=== PATIENT | female | born 1940 | race Caucasian/White ===

== ENCOUNTER 2024-06-08 13:19 | Emergency (ER) | payer MEDICARE, OTHER, SELFPAY ==
[2024-06-08 13:20] VITALS: BP 127/109; PULSE 78; RESP 16; TEMP 36.3; O2SAT 98; BMI 24.5
[2024-06-08 14:43] LABS: Bacteria 0 SEEN /hpf (None Seen); Mucous, Urine 0 SEEN /hpf (<or=2+); Red Blood Cells-Urine 0 SEEN /hpf (0-5)
[2024-06-08 14:45] LABS: Absolute Lymphocyte Count 1.21 X10^3/uL (0.83-4.51); Absolute Neutrophil Count 4.1 X10^3/uL (2.0-7.7); Basophil# 0.06 X10^3/uL; Eosinophil# 0.17 X10^3/uL; Eosinophils% 2.8 % (0-5); Hematocrit 34.7 % (37-47); Hemoglobin 11.8 g/dL (12.0-15.0); Lymphocyte # 1.21 X10^3/ul (0.83-4.51); Lymphocyte % 20.2 % (19-41); Mean Platelet Vol. 11.1 fl (6.2-12.0); Monocyte% 6.7 % (0-10); NRBC Flagged by Analyzer 0 % (0-5); Neutrophil # 4.14 X10^3/uL (2.7-7.7); Neutrophil % 69.1 % (47-70); Platelet Count 185 K/mm3 (150-450); RBC Distribution Width CV 12.2 % (11.6-14.6); RBC Distribution Width SD 41.8 fl (35.1-43.9); Red Blood Count 3.69 M/mm3 (4.2-5.4)
[2024-06-08 14:47] LABS: Color, Urine Yellow (Yellow); Glucose, Dipstick Normal (Normal); Ketone-Dipstick Negative (Negative); Leukocyte Esterase-Dipstick 100 /ul (Negative); Nitrite-Dipstick Negative (Negative); Occult Blood-Urine Negative /ul (Negative); Protein-Dipstick Negative (Negative); Urine Bilirubin Dipstick Negative (Negative); Urine Clarity Sl. Cloudy (Clear); Urine Urobilinogen Normal (Normal); Urine pH 6.5 (5.0 - 8.0)
--- NOTE | 2024-06-08 14:47 | RAD_ITS ---
EXAM: XR ABDOMEN, 1 VIEW CLINICAL INDICATION: constipation TECHNIQUE: Frontal supine view of the abdomen/pelvis. COMPARISON: No relevant prior studies available. FINDINGS: GASTROINTESTINAL TRACT: Moderate to large amount of stool and gas throughout the bowel without overt evidence of bowel obstruction. ORGANS: Normal as visualized. No organomegaly. No abnormal calcifications. BONES/JOINTS: [place] left scoliotic curvature and degenerative change. Degenerative changes at the SI joints and bilateral hips. SOFT TISSUES: No acute pathology. VASCULATURE: Vascular calcifications. RAD/Abdomen Single View IMPRESSION: Moderate to large amount of stool and gas throughout the bowel without overt evidence of bowel obstruction. Electronically Signed: Angel Sim DO at 15:26 EDT ,
--- NOTE | 2024-06-08 14:48 | EX.ED.DYSGE1 ---
HPI History of Present Illness Chief Complaint: Abd Pain Informant: patient and family (Son) Narrative Narrative: 83-year-old female history of Alzheimer's presented to the emergency room with abdominal pain. Son tells me that she is in hospice care for possible pancreatic cancer, Alzheimer's, and skin cancer. She states that she has chronic issues with constipation. Today she was having upper abdominal pain across all quadrants. He had hospice nurse come out they took vital signs and gave some extra senna. Also gave an Ultram. Patient had a bowl of bran flakes this morning. No vomiting or fevers. Patient states she is no longer having any abdominal pain. [facility] Medical History Skin cancer Diastolic heart failure Hypertension Constipation Home Medications ?Medication ?Instructions ?Recorded ?Last Taken ?Type amlodipine 10 mg tablet 10 mg PO DAILY blood pressure 06/08/24 Unknown History magnesium citrate 300 ml PO X1 PRN constipation #3 06/08/24 Unknown Rx BOTTLES memantine 10 mg tablet 10 mg PO BID 06/08/24 Unknown History mirabegron 25 mg tablet,extended 25 mg PO DAILY dysuria 06/08/24 Unknown History release 24 hr (Myrbetriq) omeprazole 20 mg capsule,delayed 20 mg PO DAILY 06/08/24 Unknown History release valsartan 80 mg tablet 80 mg PO DAILY 06/08/24 Unknown History Allergy/AdvReac Type Severity Reaction Status Date / Time No Known Allergies Allergy Verified 06/08/24 13:23 Social History Smoking Status: Never smoker ROS ROS ED Constitutional Constitutional ED: Denies chills, fever(s) or weight loss Eyes Eyes: Denies change in vision or diplopia ENT ENT ED: Denies ear pain, rhinorrhea or sore throat Cardiovascular Cardiovascular: Denies chest pain, orthopnea, palpitations or racing heartbeat Respiratory/Chest Respiratory/Chest: Denies cough, dyspnea or orthopnea Gastrointestinal Gastrointestinal: Reports abdominal pain and constipation; Denies diarrhea, nausea or vomiting Genitourinary Genitourinary ED: Denies dysuria, hematuria or urinary frequency Musculoskeletal Musculoskeletal: Denies arthralgias or myalgias Integumentary Denies abscess or rash Neurologic Neurologic: Denies headache(s) or weakness Psychiatric Psychiatric: Denies anxiety, depression, suicidal ideation or suicidal thoughts Endocrine Endocrinology: Denies polydipsia, polyphagia or polyuria Allergic/Immunologic Allergic/Immunologic ED: Denies mouth swelling, tongue swelling or urticaria EXAM Physical Exam Narrative Exam Narrative: Pleasant 83-year-old female sitting comfortably in bed Const Vital Signs: 06/08/24 13:20 06/08/24 15:20 06/08/24 15:57 Temperature 97.4 F L 97.2 F L Temperature Source Temporal Pulse Rate 78 82 76 Respiratory Rate 16 16 16 Blood Pressure 127/109 H 132/76 H 133/76 H Blood Pressure Mean 115 94 95 Pulse Ox 98 94 100 Oxygen Delivery Method Room Air Room Air Positive well nourished and well developed General Appearance ED: well developed HEENT Reports normocephalic, head/scalp atraumatic and moist mucous membranes Eyes PERRL and EOMs intact bilaterally Neck no lymphadenopathy, supple and no JVD Resp normal respiratory effort and clear to auscultation bilaterally Cardio regular rate, regular rhythm and no murmurs GI normal to inspection, nondistended, normoactive bowel sounds and non-tender Auscultation: normoactive bowel sounds Palpation: soft; Negative for tender, guarding or rebound tenderness present Back/Spine no CVA tenderness and normal ROM Extremity normal to inspection General Extremety ED: Negative for edema General Extremity: Negative for edema Neuro CN's II-XII intact bilaterally Neuro Narrative: Patient is alert orientated to self. Sensorium / Orientation: alert Motor Exam: strength 5/5 throughout Psych Mood & Affect: Negative for depressed or tearful Skin no rashes or lesions noted and no wounds MDM MDM MDM Narrative Medical decision making narrative: Differential diagnosis includes but not limited to constipation pancreatitis biliary colic bowel obstruction fecal impaction volvulus gastric outlet obstruction Patient is asymptomatic my examination. She has normal bowel sounds. White count is 6 hemoglobin 11.8. BMP is within normal limits urinalysis does not show any overt infection. My independent interpretation of the plain film of the abdomen is increased stool and gas but no obvious obstruction or bowel movements. EKG, I spoke with the patient and her son. They have had mixed results in the past with enemas to do this today. They prefer to take some magnesium citrate today and possible tomorrow. I think this is a reasonable plan of writing prescription for it. Would recommend following up as needed return History & Record Review Discussion w/independent historian: Patient and Family Lab Data Attestation: I reviewed the patient's lab results. Labs: Laboratory Results - last 24 hr 06/08/24 14:36 WBC 6.0 RBC 3.69 L Hgb 11.8 L Hct 34.7 L MCV 94.0 MCH 32.0 MCHC 34.0 RDW Std Deviation 41.8 RDW Coeff of Flip 12.2 Plt Count 185 MPV 11.1 Immature Gran % (Auto) 0.200 Neut % (Auto) 69.1 Lymph % (Auto) 20.2 [place] % (Auto) 6.7 Eos % (Auto) 2.8 Baso % (Auto) 1.0 Absolute Neuts (auto) 4.1 Absolute Lymphs (auto) 1.21 Nucleated RBC % 0 Sodium 139 Potassium 3.5 Chloride 107 Carbon Dioxide 27.0 Anion Gap 5 BUN 12 Creatinine 0.85 Estim Creat Clear Calc 42.29 Est GFR (MDRD) Af Amer 82 Est GFR (MDRD) Non-Af 68 BUN/Creatinine Ratio 14.2 Glucose 101 Calcium 8.9 Urine Color Yellow Urine Clarity Sl. Cloudy Urine pH 6.5 Ur Specific [place] 1.010 Urine Protein Negative Urine Glucose (UA) Normal Urine Ketones Negative Urine Occult Blood Negative Urine Nitrite Negative Urine Bilirubin Negative Urine Urobilinogen Normal Ur Leukocyte Esterase 100 H Urine RBC 0 SEEN Urine WBC 0-5 SEEN Ur Squamous Epith Cells 0-5 SEEN Urine Bacteria 0 SEEN Urine Mucus 0 SEEN Radiography Diagnostic Testing: Clinical Impression(s) from Imaging Studies KUB X-Ray 06/08/24 14:47 IMPRESSION: Moderate to large amount of stool and gas throughout the bowel without overt evidence of bowel obstruction. Electronically Signed: Angel Sim DO at 15:26 EDT , Discharge Plan Triage Chief Complaint: Abd Pain ED Provider: Cristi Raza Dx/Rx/DC Orders Clinical Impression: Abdominal pain, Constipation Instructions: ED Constipation (Adult) Prescriptions: New magnesium citrate Solution 300 ml PO X1 PRN (Reason: constipation) Qty: 3 0RF No Action valsartan 80 mg tablet 80 mg PO DAILY amlodipine 10 mg tablet 10 mg PO DAILY omeprazole 20 mg capsule,delayed release(DR/EC) 20 mg PO DAILY memantine 10 mg tablet 10 mg PO BID mirabegron [Myrbetriq] 25 mg tablet extended release 24 hr 25 mg PO DAILY Primary Care Provider: Halle Johnson Referrals: Halle Johnson MD [Primary Care Provider] - As Needed Print Language: Persian Disposition Disposition: Home, Self Care Discharge Date/Time: 06/08/24 15:58
[2024-06-08 14:57] LABS: Squamous Epithelial Cells - UA 0-5 SEEN /hpf (5-10); White Blood Cells 0-5 SEEN /hpf (0-5)
[2024-06-08 15:02] LABS: Anion Gap 5 (5-15); BUN 12 mg/dL (7-18); BUN/Creat Ratio 14.2 RATIO (10-20); Calcium,Total 8.9 mg/dL (8.5-10.1); Chloride 107 mmol/L (98-107); Creatinine, Serum 0.85 mg/dL (0.55-1.02); EST Glomerular Filtration Rate 68 mL/min (>60); Est Glom Filt Rate - Afr Amer 82 mL/min (>60); Estimated Creatinine Clearance 42.29 ml/min; Glucose 101 mg/dL (74-106); Potassium 3.5 mmol/L (3.5-5.1); Sodium Level 139 mmol/L (136-145)
[2024-06-08 15:20] VITALS: BP 132/76; PULSE 82; RESP 16; O2SAT 94
[2024-06-08 15:57] VITALS: BP 133/76; PULSE 76; RESP 16; TEMP 36.2; O2SAT 100
== END 2024-06-08 15:58 | disposition home or self-care (01) ==
PROVIDERS: Emergency Provider Emergency Medicine; PCP Family Medicine; Visit Provider Emergency Medicine
DX: K59.00 Constipation, unspecified (principal); I11.0 Hypertensive heart disease with heart failure; I50.32 Chronic diastolic (congestive) heart failure; G30.9 Alzheimer's disease, unspecified; F02.80 Dementia in other diseases classified elsewhere, unspecified severity, without behavioral disturbance, psychotic disturbance, mood disturbance, and anxiety; R10.9 Unspecified abdominal pain; Z51.5 Encounter for palliative care; Z79.899 Other long term (current) drug therapy
CPT/HCPCS: 74018; 80048; 81001; 85025; 99283; A4216

== ENCOUNTER 2024-06-27 15:57 | Emergency (ER) | payer MEDICARE, SELFPAY ==
[2024-06-27 15:59] VITALS: BP 129/79; PULSE 77; RESP 17; TEMP 36.1; O2SAT 100; BMI 23.3
--- NOTE | 2024-06-27 16:23 | EDS_ITS ---
HPI HPI - GI History of Present Illness Chief Complaint: Weakness Informant: patient and family Narrative Narrative: Patient has dementia, she is alone at home for portions of the day when family is working, please saw her stumble today as if somebody shoved her, and were concerned as far as camera footage was concerned. For the last month she has had constipation and abdominal pain off-and-on. They have been treating this with laxatives and stool softeners. Today she was having a lot of pain, and they were concerned that there was a colon perforation. CT scan for the same thing couple weeks ago here showed swollen colon. Patient had her last bowel movement just before coming here. She states she has no pain right now. She has had no vomiting. She had no trouble urinating earlier and she states there was no blood in his stool from a couple hours ago. She was on hospice, the son states they took her off of it here recently. They were having to come to the house often to give her enemas and suppositories for constipation issues. She walks without assistance at home, son states she is post use a walker but she refuses. [facility] Medical History (Updated 06/27/24 @ 16:[address] Ishaan Gomes MD) Dementia Skin cancer Diastolic heart failure Hypertension Constipation Home Medications ?Medication ?Instructions ?Recorded ?Last Taken ?Type amlodipine 10 mg tablet 10 mg PO DAILY blood pressure 06/08/24 Unknown History magnesium citrate 300 ml PO X1 PRN constipation #3 06/08/24 Unknown Rx BOTTLES memantine 10 mg tablet 10 mg PO BID 06/08/24 Unknown History mirabegron 25 mg tablet,extended 25 mg PO DAILY dysuria 06/08/24 Unknown History release 24 hr (Myrbetriq) omeprazole 20 mg capsule,delayed 20 mg PO DAILY 06/08/24 Unknown History release valsartan 80 mg tablet 80 mg PO DAILY 06/08/24 Unknown History Allergy/AdvReac Type Severity Reaction Status Date / Time No Known Allergies Allergy Verified 06/27/24 15:59 Social History Smoking Status: Never smoker ROS ROS ED Constitutional Constitutional ED: Denies chills or fever(s) Eyes Eyes: Denies change in vision or diplopia ENT ENT ED: Denies rhinorrhea or sore throat Cardiovascular Cardiovascular: Denies chest pain or palpitations Respiratory/Chest Respiratory/Chest: Denies cough or dyspnea Gastrointestinal Gastrointestinal: Reports as per HPI, abdominal pain and constipation; Denies diarrhea, nausea or vomiting Genitourinary Genitourinary ED: Denies dysuria or hematuria Musculoskeletal Musculoskeletal: Denies back pain or neck pain Integumentary Denies abscess or rash Neurologic Neurologic: Reports other Details: Confusion. At baseline. Stumbled earlier see HPI. ; Denies headache(s), paresthesias or weakness Psychiatric Psychiatric: Denies anxiety or suicidal thoughts EXAM Physical Exam Const Vital Signs: 06/27/24 15:59 06/27/24 16:46 Temperature 97 F L Temperature Source Temporal Pulse Rate 77 Respiratory Rate 17 Respiratory Effort Normal Respiratory Pattern Normal Blood Pressure 129/79 H Blood Pressure Mean 95 Pulse Ox 100 Oxygen Delivery Method Room Air Positive well nourished and well developed General Appearance ED: well developed and NAD HEENT Reports moist mucous membranes normocephalic and atraumatic Eyes PERRL and EOMs intact bilaterally Neck full ROM and supple Resp normal respiratory effort and clear to auscultation bilaterally Cardio regular rate, regular rhythm and no murmurs GI non-tender and non-distended GI Narrative: Benign exam Auscultation: normoactive bowel sounds Palpation: soft Back/Spine no CVA tenderness General Back: other FROM Extremity normal to inspection General Extremety ED: Negative for edema, pulses abnormal or tenderness General Extremity: Negative for edema or pulses abnormal Neuro oriented x3, CN's II-XII intact bilaterally and no sensory deficits noted Neuro Narrative: Normal [id number] and [id number] bilaterally. Normal gait, patient has no ataxia and can walk down the [place] and back without any difficulty and states she did not feel dizzy at all. Sensorium / Orientation: awake and alert Motor Exam: strength 5/5 throughout Psych mental status grossly normal and thought process normal Skin no rashes or lesions noted and no wounds MDM MDM MDM Narrative Medical decision making narrative: Ran some basic labs I reviewed them. I do not think she needs repeat imaging of her abdomen/pelvis right now since her abdomen is very benign and I reassured family, she does not have a bowel perforation if her pain is gone and her abdomen is not tender. He is reassured. I reviewed her CT from before, it looks like she had temporary colon distention as a result of being constipated. I relayed this to family, stating that there is nothing there that appear to be a chronic condition anatomically with her colon. History & Record Review Additional record(s) reviewed:: Prior outpatient record and Prior ED visit Lab Data Attestation: I reviewed the patient's lab results. Labs: Laboratory Results - last 24 hr 06/27/24 16:40 WBC 6.5 RBC 3.82 L Hgb 12.4 Hct 36.8 L MCV 96.3 MCH 32.5 H MCHC 33.7 RDW Std Deviation 42.0 RDW Coeff of Flip 11.9 Plt Count 190 MPV 11.0 Immature Gran % (Auto) 0.300 Neut % (Auto) 67.1 Lymph % (Auto) 20.0 [place] % (Auto) 8.8 Eos % (Auto) 3.2 Baso % (Auto) 0.6 Absolute Neuts (auto) 4.4 Absolute Lymphs (auto) 1.30 Nucleated RBC % 0 Sodium 135 L Potassium 3.8 Chloride 103 Carbon Dioxide 25.0 Anion Gap 7 BUN 14 Creatinine 0.95 Estim Creat Clear Calc 38.07 Est GFR (MDRD) Af Amer 72 Est GFR (MDRD) Non-Af 59 L BUN/Creatinine Ratio 14.7 Glucose 104 Calcium 8.5 Total Bilirubin 0.30 AST 16 ALT 15 Alkaline Phosphatase 79 Total Protein 6.7 Albumin 3.2 Globulin 3.5 Albumin/Globulin Ratio 0.9 Discharge Plan Triage Chief Complaint: Weakness ED Provider: Ishaan Gomes Dx/Rx/DC Orders Clinical Impression: Constipation, Intermittent abdominal pain Instructions: ED Constipation (Adult) Prescriptions: No Action valsartan 80 mg tablet 80 mg PO DAILY amlodipine 10 mg tablet 10 mg PO DAILY omeprazole 20 mg capsule,delayed release(DR/EC) 20 mg PO DAILY memantine 10 mg tablet 10 mg PO BID mirabegron [Myrbetriq] 25 mg tablet extended release 24 hr 25 mg PO DAILY magnesium citrate Solution 300 ml PO X1 PRN (Reason: constipation) Qty: 3 0RF Primary Care Provider: Tigist Madrid NP Referrals: Tigist Madrid NP, RN PSYCH-[facility] [Primary Care Provider] - Print Language: [place] Disposition Disposition: Home, Self Care
[2024-06-27 16:55] LABS: Absolute Neutrophil Count 4.4 X10^3/uL (2.0-7.7); Basophil# 0.04 X10^3/uL; Basophil% 0.6 % (0-1); Eosinophil# 0.21 X10^3/uL; Eosinophils% 3.2 % (0-5); Hematocrit 36.8 % (37-47); Hemoglobin 12.4 g/dL (12.0-15.0); Mean Corp Hgb Conc 33.7 g/dL (32-36); Mean Corpuscular Hgb 32.5 pg (27.0-32.0); Mean Corpuscular Volume 96.3 fL (81-99); Monocyte# 0.57 X10^3/uL; Monocyte% 8.8 % (0-10); NRBC Flagged by Analyzer 0 % (0-5); Neutrophil # 4.37 X10^3/uL (2.7-7.7); Neutrophil % 67.1 % (47-70); Platelet Count 190 K/mm3 (150-450); RBC Distribution Width CV 11.9 % (11.6-14.6); Red Blood Count 3.82 M/mm3 (4.2-5.4); White Blood Count 6.5 K/mm3 (4.4-11.0)
[2024-06-27 17:00] VITALS: BP 134/74; PULSE 82; RESP 18; TEMP 36.6; O2SAT 99
[2024-06-27 17:20] LABS: ALB/GLOB Ratio 0.9 RATIO (0.9-2.4); AST(SGOT) 16 U/L (15-37); Alanine Aminotransfer ALT/SGPT 15 U/L (13-56); Albumin, Serum 3.2 g/dL (3.2-5.0); Alkaline Phosphatase 79 U/L (45-117); Anion Gap 7 (5-15); BUN 14 mg/dL (7-18); BUN/Creat Ratio 14.7 RATIO (10-20); Calcium,Total 8.5 mg/dL (8.5-10.1); Chloride 103 mmol/L (98-107); Creatinine, Serum 0.95 mg/dL (0.55-1.02); EST Glomerular Filtration Rate 59 mL/min (>60); Est Glom Filt Rate - Afr Amer 72 mL/min (>60); Estimated Creatinine Clearance 38.07 ml/min; Globulin 3.5 g/dL (2.2-4.2); Glucose 104 mg/dL (74-106); Potassium 3.8 mmol/L (3.5-5.1); Protein, Total 6.7 g/dL (6.4-8.2); Sodium Level 135 mmol/L (136-145)
== END 2024-06-27 17:09 | disposition home or self-care (01) ==
PROVIDERS: Emergency Provider Emergency Medicine; PCP Nurse Practitioner Family; Visit Provider Emergency Medicine
DX: K59.00 Constipation, unspecified (principal); I11.0 Hypertensive heart disease with heart failure; I50.32 Chronic diastolic (congestive) heart failure; F03.90 Unspecified dementia, unspecified severity, without behavioral disturbance, psychotic disturbance, mood disturbance, and anxiety; R10.9 Unspecified abdominal pain; Z79.899 Other long term (current) drug therapy
CPT/HCPCS: 80053; 85025; 99282

== ENCOUNTER 2024-08-19 18:01 | Emergency (ER) | payer MEDICARE, SELFPAY ==
[2024-08-19 18:04] VITALS: BP 139/86; PULSE 73; RESP 16; TEMP 37; O2SAT 98; BMI 22.9
[2024-08-19 18:50] LABS: Absolute Lymphocyte Count 1.17 X10^3/uL (0.83-4.51); Basophil# 0.06 X10^3/uL; Basophil% 1.2 % (0-1); Eosinophil# 0.27 X10^3/uL; Eosinophils% 5.4 % (0-5); Hematocrit 37.4 % (37-47); Hemoglobin 12.6 g/dL (12.0-15.0); Lymphocyte # 1.17 X10^3/ul (0.83-4.51); Lymphocyte % 23.4 % (19-41); Mean Corp Hgb Conc 33.7 g/dL (32-36); Mean Corpuscular Hgb 32.7 pg (27.0-32.0); Mean Corpuscular Volume 97.1 fL (81-99); Monocyte# 0.54 X10^3/uL; Monocyte% 10.8 % (0-10); NRBC Flagged by Analyzer 0 % (0-5); Neutrophil # 2.95 X10^3/uL (2.7-7.7); Neutrophil % 59.2 % (47-70); Platelet Count 204 K/mm3 (150-450); RBC Distribution Width CV 12.4 % (11.6-14.6); RBC Distribution Width SD 44.3 fl (35.1-43.9); Red Blood Count 3.85 M/mm3 (4.2-5.4)
[2024-08-19 19:01] LABS: Alcohol, Blood (Medical)-Serum < 3.0 mg/dL
[2024-08-19 19:05] LABS: ALB/GLOB Ratio 0.9 RATIO (0.9-2.4); AST(SGOT) 19 U/L (15-37); Alanine Aminotransfer ALT/SGPT 28 U/L (13-56); Albumin, Serum 3.4 g/dL (3.2-5.0); Alkaline Phosphatase 95 U/L (45-117); Anion Gap 6 (5-15); BUN 9 mg/dL (7-18); BUN/Creat Ratio 8.3 RATIO (10-20); Calcium,Total 8.7 mg/dL (8.5-10.1); Chloride 107 mmol/L (98-107); Creatinine, Serum 1.09 mg/dL (0.55-1.02); EST Glomerular Filtration Rate 51 mL/min (>60); Est Glom Filt Rate - Afr Amer 61 mL/min (>60); Estimated Creatinine Clearance 33.18 ml/min; Globulin 3.6 g/dL (2.2-4.2); Glucose 126 mg/dL (74-106); Potassium 3.6 mmol/L (3.5-5.1); Sodium Level 139 mmol/L (136-145)
[2024-08-19 19:10] VITALS: BP 122/74; PULSE 87; RESP 18; O2SAT 99
[2024-08-19 20:36] LABS: Mucous, Urine 0 SEEN /hpf (<or=2+); Red Blood Cells-Urine 0 SEEN /hpf (0-5)
[2024-08-19 20:38] LABS: Color, Urine Yellow (Yellow); Glucose, Dipstick Normal (Normal); Ketone-Dipstick Negative (Negative); Leukocyte Esterase-Dipstick 25 /ul (Negative); Nitrite-Dipstick Negative (Negative); Occult Blood-Urine 10 /ul (Negative); Protein-Dipstick Negative (Negative); Specific Gravity, Urine 1.015 (1.002-1.030); Urine Bilirubin Dipstick Negative (Negative); Urine Clarity Sl. Cloudy (Clear); Urine Urobilinogen Normal (Normal)
[2024-08-19 20:44] LABS: Squamous Epithelial Cells - UA 0-5 SEEN /hpf (5-10)
[2024-08-19 20:45] LABS: Bacteria RARE /hpf (None Seen); White Blood Cells 0-5 SEEN /hpf (0-5)
[2024-08-19 20:58] LABS: Amphetamine Urine VISTA NEGATIVE (<1000 ng/mL); Barbiturate Urine VISTA NEGATIVE (< 200 ng/mL); Benzodiazepine Urine VISTA NEGATIVE (< 200 ng/mL); Cocaine Urine VISTA NEGATIVE (< 300 ng/mL); Ecstacy Urine VISTA NEGATIVE (< 500 ng/mL); Methadone Urine VISTA NEGATIVE (< 300 ng/mL); PCP Urine VISTA NEGATIVE (< 25 ng/mL); THC Urine VISTA NEGATIVE (< 50 ng/mL); Vista UDS pH Range 5
[2024-08-20 04:07] VITALS: BP 134/65; PULSE 86; RESP 13; RESP 136; TEMP 36.2; O2SAT 97
== END 2024-08-20 08:12 ==
PROVIDERS: Emergency Provider Emergency Medicine; PCP Nurse Practitioner Family; Visit Provider Emergency Medicine
DX: F29 Unspecified psychosis not due to a substance or known physiological condition (principal); I11.0 Hypertensive heart disease with heart failure; I50.32 Chronic diastolic (congestive) heart failure; F03.90 Unspecified dementia, unspecified severity, without behavioral disturbance, psychotic disturbance, mood disturbance, and anxiety; F32.A Depression, unspecified; R45.851 Suicidal ideations; T43.596A Underdosing of other antipsychotics and neuroleptics, initial encounter; Z91.148 Patient's other noncompliance with medication regimen for other reason; Z79.899 Other long term (current) drug therapy
CPT/HCPCS: 70450; 71045; 80053; 80307; 81001; 82077; 85025; 93005; 99285